=== PATIENT | female | born 1975 | race Caucasian/White ===

== ENCOUNTER 2019-10-15 17:08 | Emergency (ER) | payer SELFPAY ==
[2019-10-15 17:14] VITALS: BP 121/89; PULSE 86
[2019-10-15] MEDS ORDERED: Sodium Chloride 0.9% 10 ML Syringe FLUSH PRN (17:23)
[2019-10-15] MEDS ORDERED: Aspirin 81 MG Tab.Chew PO ONE (17:23)
[2019-10-15] MEDS ORDERED: Sodium Chloride 0.9% 1,000 ML IV ONE (17:28)
--- NOTE | 2019-10-15 17:29 | EDM.PDOC ---
ED HPI GENERAL MEDICAL PROBLEM - General Chief Complaint: Chest Pain Stated Complaint: SOB AND CHEST PAIN Time Seen by Provider: 10/15/19 17:12 Source of Information: Reports: Patient History Limitations: Reports: No Limitations - History of Present Illness INITIAL COMMENTS - FREE TEXT/NARRATIVE: The patient presents with chest pain. She says she was traveling back from [place] and she felt like she needed to keep moving to get her heart going. She then developed some chest pain. She has some shortness of breath and she was lightheaded. She has no fever, chills, cough, congestion, runny nose, abdominal pain, nausea or vomiting. She has no history of heart disease. She does smoke. She has no history fo hypertension, hypercholesterolemia, or diabetes. Onset: Sudden Duration: Hour(s): Location: Reports: Chest Quality: Reports: Ache Severity: Mild Improves with: Reports: None Worsens with: Reports: None Associated Symptoms: Reports: Chest Pain, Shortness of Breath. Denies: Cough, Fever/Chills, Headaches, Nausea/Vomiting Left Chest Pain Score (Numeric/FACES): 7 - Related Data Allergies Allergy/AdvReac Type Severity Reaction Status Date / Time morphine Allergy Swelling Verified 10/15/19 17:14 Powder in Surgical Gloves Allergy Swelling Uncoded 10/15/19 17:14 Home Meds: Home Meds Cyclobenzaprine [Flexeril] 10 mg PO BID PRN #20 tablet 12/30/15 [Rx] Past Medical History Musculoskeletal History: Reports: Arthritis, Other (See Below) Other Musculoskeletal History: right shoulder arthritis Oncologic (Cancer) History: Reports: Ovarian - Past Surgical History HEENT Surgical History: Reports: Other (See Below) Other HEENT Surgeries/Procedures: neck surgery x3. braiseotomy. GI Surgical History: Reports: Appendectomy, Cholecystectomy Female Surgical History: Reports: Hysterectomy, Oophorectomy Social & Family History - Family History Family Medical History: Noncontributory - Tobacco Use Smoking Status *Q: Current Some Day Smoker Years of Tobacco use: 20 Packs/Tins Daily: 0.1 - Caffeine Use Caffeine Use: Reports: Coffee - Recreational Drug Use Recreational Drug Use: No ED ROS GENERAL - Review of Systems Review Of Systems: See Below Constitutional: Reports: No Symptoms HEENT: Reports: No Symptoms Respiratory: Reports: Shortness of Breath Cardiovascular: Reports: Chest Pain, Lightheadedness Endocrine: Reports: No Symptoms GI/Abdominal: Reports: No Symptoms : Reports: No Symptoms Musculoskeletal: Reports: No Symptoms ED EXAM, GENERAL - Physical Exam Exam: See Below Exam Limited By: No Limitations General Appearance: Alert, No Apparent Distress Ears: Normal External Exam Nose: Normal Inspection Head: Atraumatic, Normocephalic Neck: Normal Inspection Respiratory/Chest: No Respiratory Distress, Lungs Clear, Normal Breath Sounds Cardiovascular: Regular Rate, Rhythm, No Edema, No Murmur GI/Abdominal: Soft, Non-Tender, No Organomegaly, No Mass Back Exam: Normal Inspection Extremities: Normal Inspection Neurological: Alert, Oriented, No Motor/Sensory Deficits EKG INTERPRETATION EKG Date: 10/15/19 Time: 17:12 Rhythm: NSR Rate (Beats/Min): 92 [place]: Normal P-Wave: Present QRS: Normal ST-T: Normal QT: Normal Course - Vital Signs Last Recorded V/S: Last Vital Signs Temp 97.7 F 10/15/19 17:11 Pulse 86 10/15/19 17:11 Resp 16 10/15/19 17:11 BP 121/89 10/15/19 17:11 Pulse Ox 100 10/15/19 17:11 - Orders/Labs/Meds Orders: Active Orders 24 hr Category Date Time Status Cardiac Monitoring [RC] . DIRECTED Care 10/15/19 17:23 Active EKG 12 Lead [EKG Documentation Completion] [RC] STAT Care 10/15/19 17:18 Active Peripheral IV Care [RC] . DIRECTED Care 10/15/19 17:23 Active Sodium Chloride 0.9% [Normal Saline] 1,000 ml Med 10/15/19 17:28 Active IV ONETIME Sodium Chloride 0.9% [Saline Flush] Med 10/15/19 17:23 Active 10 ml FLUSH ASDIRECTED PRN Peripheral IV Insertion Adult [OM.PC] Stat Oth 10/15/19 17:23 Ordered Medication Orders Sodium Chloride (Normal Saline) 1,000 mls @ 1,000 mls/hr IV ONETIME ONE Stop: 10/15/19 18:27 Last Admin: 10/15/19 17:33 Dose: 1,000 mls/hr Documented by: JONATHAN Sodium Chloride (Saline Flush) 10 ml FLUSH ASDIRECTED PRN PRN Reason: Keep Vein Open Last Admin: 10/15/19 17:27 Dose: 10 ml Documented by: JONATHAN Labs: Laboratory Tests 10/15/19 10/15/19 10/15/19 Range/Units 17:25 17:25 17:25 WBC 7.12 (3.98-10.04) K/mm3 RBC 4.19 (3.98-5.22) M/mm3 Hgb 13.2 (11.2-15.7) gm/dl Hct 38.7 (34.1-44.9) % MCV 92.4 (79.4-94.8) fl MCH 31.5 (25.6-32.2) pg MCHC 34.1 (32.2-35.5) g/dl RDW Std Deviation 45.7 (36.4-46.3) fL Plt Count 279 (182-369) K/mm3 MPV 10.0 (9.4-12.3) fl Neut % (Auto) 49.6 (34.0-71.1) % Lymph % (Auto) 34.3 (19.3-51.7) % [place] % (Auto) 9.1 (4.7-12.5) % Eos % (Auto) 6.6 H (0.7-5.8) Baso % (Auto) 0.3 (0.1-1.2) % Neut # (Auto) 3.53 (1.56-6.13) K/mm3 Lymph # (Auto) 2.44 (1.18-3.74) K/mm3 [place] # (Auto) 0.65 H (0.24-0.36) K/mm3 Eos # (Auto) 0.47 H (0.04-0.36) K/mm3 Baso # (Auto) 0.02 (0.01-0.08) K/mm3 D-Dimer, Quantitative 0.36 (0.19-0.50) mg/L Sodium 139 (136-145) mEq/L Potassium 3.5 (3.5-5.1) mEq/L Chloride 103 (98-107) mEq/L Carbon Dioxide 26 (21-32) mEq/L Anion Gap 13.5 (5-15) BUN 17 (7-18) mg/dL Creatinine 0.7 (0.55-1.02) mg/dL Est Cr Clr Drug Dosing 88.56 mL/min Estimated GFR (MDRD) > 60 (>60) mL/min BUN/Creatinine Ratio 24.3 H (14-18) Glucose 86 (74-106) mg/dL Calcium 9.0 (8.5-10.1) mg/dL Total Bilirubin 0.5 (0.2-1.0) mg/dL AST 24 (15-37) U/L ALT 30 (14-59) U/L Alkaline Phosphatase 59 (46-116) U/L Troponin I < 0.017 (0.00-0.056) ng/mL Total Protein 6.7 (6.4-8.2) g/dl Albumin 3.8 (3.4-5.0) g/dl Globulin 2.9 gm/dL Albumin/Globulin Ratio 1.3 (1-2) Meds: Medications Generic Name Dose Route Start Last Admin Trade Name Freq PRN Reason Stop Dose Admin Sodium Chloride 1,000 mls @ 1,000 mls/hr 10/15/19 17:28 10/15/19 17:33 Normal Saline IV 10/15/19 18:27 1,000 mls/hr ONETIME ONE Administration Sodium Chloride 10 ml 10/15/19 17:23 10/15/19 17:27 Saline Flush FLUSH 10 ml ASDIRECTED PRN Administration Keep Vein Open Discontinued Medications Generic Name Dose Route Start Last Admin Trade Name Freq PRN Reason Stop Dose Admin Aspirin 324 mg 10/15/19 17:23 10/15/19 17:27 Aspirin PO 10/15/19 17:24 324 mg ONETIME ONE Administration Diazepam 5 mg 10/15/19 18:10 10/15/19 18:16 Valium IVPUSH 10/15/19 18:11 5 mg ONETIME ONE Administration - Re-Assessments/Exams Free Text/Narrative Re-Assessment/Exam: 10/15/19 17:28 I ordered an IV NS 1L bolus, EKG, CXR, labs and aspirin. Her EKG shows a NSR with no acute changes. 10/15/19 18:17 Her CXR looks good. Her CBC and CMP look good. Her troponin and D-dimer are negative. She still feels off like she is anxious. I will give her some valium 5mg IV. Departure - Departure Time of Disposition: 18:30 Disposition: Home, Self-Care 01 Condition: Good Clinical Impression: Atypical chest pain Referrals: PCP,Not In Area [Primary Care Provider] - Forms: ED Department Discharge Additional Instructions: Take motrin or tylenol for pain. Follow up with your doctor this week. Please return if you are worse. Sepsis Event Note (ED) - Evaluation Sepsis Screening Result: No Definite Risk - Focused Exam Vital Signs: Vital Signs Temp Pulse Resp BP Pulse Ox 10/15/19 17:11 97.7 F 86 16 121/89 100 - My Orders Last 24 Hours: My Active Orders 10/15/19 17:18 EKG 12 Lead [EKG Documentation Completion] [RC] STAT 10/15/19 17:23 Cardiac Monitoring [RC] . DIRECTED Peripheral IV Care [RC] . DIRECTED Sodium Chloride 0.9% [Saline Flush] 10 ml FLUSH ASDIRECTED PRN Peripheral IV Insertion Adult [OM.PC] Stat 10/15/19 17:28 Sodium Chloride 0.9% [Normal Saline] 1,000 ml IV ONETIME - Assessment/Plan Last 24 Hours: My Active Orders 10/15/19 17:18 EKG 12 Lead [EKG Documentation Completion] [RC] STAT 10/15/19 17:23 Cardiac Monitoring [RC] . DIRECTED Peripheral IV Care [RC] . DIRECTED Sodium Chloride 0.9% [Saline Flush] 10 ml FLUSH ASDIRECTED PRN Peripheral IV Insertion Adult [OM.PC] Stat 10/15/19 17:28 Sodium Chloride 0.9% [Normal Saline] 1,000 ml IV ONETIME
--- NOTE | 2019-10-15 18:11 | CR ---
Chest: PA and lateral views of the chest were obtained. Comparison: No prior chest imaging is available. Heart size and mediastinum are normal. Lungs are clear. Diaphragms are slightly flattened on the lateral view. Prior cervical spine surgery is noted. Prior cholecystectomy is noted. Impression: 1. Lungs appear somewhat hyperinflated on the lateral view. This may represent good inspiratory effort as well as representing early emphysematous change if patient is a smoker. Chronic asthma can also cause similar appearance. 2. Nothing acute is otherwise seen. Diagnostic code #2 Study was dictated in MDT
== END 2019-10-15 18:35 | disposition home or self-care (01) ==
LOC: JD.ED 17:08
DX: R07.89 Other chest pain (principal); F17.210 Nicotine dependence, cigarettes, uncomplicated; Z88.5 Allergy status to narcotic agent; Z91.048 Other nonmedicinal substance allergy status
CPT/HCPCS: 36415; 71046; 80053; 84484; 85025; 85379; 93005; 96361; 96374; 99285; A9270; J3360; J7030; 93010; 99284